=== PATIENT | male | born 1985 | race Two or more races ===

== ENCOUNTER 2022-09-27 06:55 | Emergency (ER) | payer BC ==
[2022-09-27] MEDS ORDERED: Dextrose 5%-0.9% NaCl 1,000 ML IV SCH (08:00)
[2022-09-27 09:29] LABS: CORONAVIRUS COVID-19 NAA POSITIVE (NEGATIVE)
== END 2022-09-27 10:25 | disposition home or self-care (01) ==
LOC: JD.ED 06:55
DX: U07.1 COVID-19 (principal); J45.909 Unspecified asthma, uncomplicated; Z88.0 Allergy status to penicillin; Z86.16 Personal history of COVID-19
CPT/HCPCS: 0241U; 36415; 71045; 80053; 83605; 83735; 85025; 85379; 86140; 96360; 96361; 99283; J7042